=== PATIENT | male | born 1945 | race Caucasian/White ===

== ENCOUNTER 2023-06-18 07:55 | Day surgery (SDC) | payer MEDICARE ==
[~2023-06-18 07:55] MED LIST: Propofol 200 MG/20 ML SDV ONE; fentaNYL 50 MCG/ML SDV ONE
[2023-06-18] MEDS ORDERED: Sodium Chloride 0.9% 1,000 ML IV SCH (08:30)
== END 2023-06-18 11:00 | disposition home or self-care (01) ==
LOC: JP.SDS 07:55
PROVIDERS: ATTEND Surgery
DX: K63.5 Polyp of colon (principal); K57.30 Diverticulosis of large intestine without perforation or abscess without bleeding; J44.9 Chronic obstructive pulmonary disease, unspecified; E11.9 Type 2 diabetes mellitus without complications; E78.00 Pure hypercholesterolemia, unspecified; F41.9 Anxiety disorder, unspecified; J84.9 Interstitial pulmonary disease, unspecified; Z88.8 Allergy status to other drugs, medicaments and biological substances
CPT/HCPCS: 45380; J2704; J3010; J7030